=== PATIENT | male | born 1995 ===

== ENCOUNTER 2023-10-30 20:39 | Emergency (ER) | payer OTHER ==
[~2023-10-30] VITALS: Ht 185.4 cm; Wt 77.1 kg
[2023-10-30 20:49] VITALS: BP 131/99
== END 2023-10-30 21:09 | disposition home or self-care (01) ==
LOC: ER 20:39
DX: R04.0 Epistaxis (principal); R11.10 Vomiting, unspecified
CPT/HCPCS: 99283